=== PATIENT | female | born 1955 | race Caucasian/White ===

== ENCOUNTER → 2018-04-13 | Outpatient (CLI) | payer BC ==
--- NOTE | 2018-04-17 09:43 | MM ---
Reason for exam: screening (asymptomatic). Last mammogram was performed 1 year and 1 month ago. History: Patient is postmenopausal. Family history of breast cancer in maternal aunt. MG Screening Mammo w CAD Bilateral CC and MLO view(s) were taken. Prior study comparison: March 05, 2017, bilateral MG screening mammo w CAD. September 27, 2014, right breast MG work up mamm w CAD RT. The breast tissue is heterogeneously dense. This may lower the sensitivity of mammography. No discrete abnormality. No significant changes when compared with prior studies. ASSESSMENT: Negative, BI-RAD 1 RECOMMENDATION: Routine screening mammogram of both breasts in 1 year.
== END | disposition home or self-care (01) ==
LOC: RADMAMWWP 14:40
PROVIDERS: ATTEND Family Medicine
DX: Z12.31 Encounter for screening mammogram for malignant neoplasm of breast (principal)
CPT/HCPCS: 77067

== ENCOUNTER 2018-06-21 10:59 | Day surgery (SDC) | payer BC ==
--- NOTE | 2018-06-20 18:16 | HP ---
HISTORY AND PHYSICAL REASON FOR ADMISSION: Surgery 06/21/2018 HISTORY OF PRESENT ILLNESS: Wai Alves is a 62-year-old patient seen with symptomatic left knee osteoarthritis. We discussed options for treatment. She elected to proceed with left total knee arthroplasty. Consent was obtained. Medical clearance was provided by Dr. Doherty. PAST MEDICAL HISTORY: Hyperlipidemia, hypertension, insulin-dependent diabetes. PAST SURGICAL HISTORY: Left knee arthroscopy, left foot surgery, lumbar laminectomy. DAILY MEDICATIONS: Atorvastatin, bisoprolol/hydrochlorothiazide, glipizide, Lantus insulin, Lisinopril and Metformin. ALLERGIES: None reported. SOCIAL HISTORY: She denies current tobacco use. PHYSICAL EXAMINATION: Evaluation of the left knee range of motion is -3 to 4 to 10 degrees. There is a mild effusion present tenderness medial joint line. Crepitus medial and patellofemoral compartments range of motion. Pain with patellofemoral compression. Ligaments stable. Hip rotation without pain. Distal neurovascular exam is intact. RADIOGRAPHS: Radiographs of the left knee reveal severe medial moderate patellofemoral compartment osteoarthritis. IMPRESSION: 1. Left knee osteoarthritis. 2. Insulin-dependent diabetes. 3. Hypertension. 4. Hyperlipidemia. PLAN: Left total knee arthroplasty. Surgery is scheduled for 06/21/2018. MMODL / IJN: [id number] /
[~2018-06-21 10:59] MED LIST: ACETAMINOPHEN TAB 500 MG TAB PO ONE; DEXAMETHASONE SOD PHOSPHATE 10 MG/ML 1 ML VIAL IV ONE; HYDROmorphone 0.5 MG/0.5 ML SYRINGE IVP PRN; MELOXICAM 7.5 MG TAB PO ONE; MIDAZOLAM (PF) 2 MG/2 ML VIAL IV PRN; ONDANSETRON 4 MG/2 ML VIAL IVP ONE; SCOPOLAMINE 1.5MG/72HR PATCH TRANSDERM ONE; TRANEXAMIC ACID 1,000 MG in SODIUM CHLORIDE 0.9% 100 ML IVPB ONE; ceFAZolin IN SWFI 2 GM/20 ML SYRINGE IVP ONE
[2018-06-21 11:32] LABS: Glucose,Whole Blood 125 mg/dL (75-99)
[2018-06-21] MEDS: LACTATED RINGERS 1,000 ML IV SCH (11:34)
[2018-06-21] MEDS ORDERED: MIDAZOLAM 2 MG/2 ML VIAL IV ONE (11:40)
[2018-06-21] MEDS ORDERED: fentaNYL (PF) 50 MCG/ML 2 ML AMP IV ONE (11:40)
[2018-06-21] MEDS ORDERED: ROPIVACAINE 1,100 MG, SODIUM CHLORIDE 0.9% 500 ML 330 ML MISCELLANE PRN ×2 (12:38)
--- NOTE | 2018-06-21 12:41 | P.ONQ ---
Anesthesiology Proc Note - PNB - Peripheral Nerve Block Performed Left Adductor Canal Infusion Time Out Performed: Yes Procedure Start Time: 11:39 Indication: Acute Post-Operative Pain Specifically requested for management of pain by DrYina: Micah Valdez Sedation Type: Sedate with meaningful contact maintained Preparation: Sterile Prep Position: Supine Catheter Depth at Skin (cm): 8 Needle Size: 100mm (4") Injectate: 0.5% Ropivacaine (see comment for volume) (20 cc) Blood Aspirated: No Pain Paresthesia on Injection Noted: No Resistance on Injection: Normal Events: Uneventful and Well Tolerated
[2018-06-21] MEDS ORDERED: ROPIVACAINE 246.25 MG, EPINEPHrine 0.5 MG, KETOROLAC 30 MG, cloNIDine HCL/PF 80 MCG, WA... MISCELLANE ONE ×5 (12:53)
[2018-06-21] MEDS ORDERED: PROPOFOL 10 MG/ML 20 ML VIAL IV ONE (13:24)
[2018-06-21] MEDS ORDERED: diphenhydrAMINE 50 MG/ML 1 ML VIAL ONE (13:24)
[2018-06-21] MEDS ORDERED: fentaNYL (PF) 50 MCG/ML 2 ML AMP ONE (13:24)
[2018-06-21] MEDS ORDERED: SODIUM CHLORIDE 0.9% 100 ML BAG ONE (13:24)
[2018-06-21] MEDS ORDERED: TRANEXAMIC ACID 1,000 MG/10 ML VIAL ONE (13:24)
[2018-06-21] MEDS ORDERED: MIDAZOLAM 2 MG/2 ML VIAL ONE (13:24)
[2018-06-21] MEDS ORDERED: GLYCOPYRROLATE 0.2 MG/ML 2 ML VIAL ONE (13:24)
[2018-06-21] MEDS ORDERED: ceFAZolin 3,000 MG in SODIUM CHLORIDE 0.9% IRRIGATIO 3,000 ML IRRIGATION ONE (13:27)
[2018-06-21] MEDS ORDERED: LACTATED RINGERS 1,000 ML IV ONE ×4 (13:54→17:30)
[2018-06-21] MEDS ORDERED: MAGNESIUM HYDROXIDE 2,400 MG/10 ML CUP PO PRN (14:58)
[2018-06-21] MEDS ORDERED: HYDROcodone/APAP 7.5-325MG 1 EACH TAB PO PRN ×2 (14:58→15:00)
[2018-06-21] MEDS ORDERED: HYDROmorphone 1 MG/ML 1 ML SYRINGE IVP PRN (14:58)
[2018-06-21] MEDS ORDERED: ACETAMINOPHEN TAB 325 MG TAB PO PRN (14:58)
[2018-06-21] MEDS ORDERED: traMADol 50 MG TAB PO PRN (14:58)
[2018-06-21] MEDS ORDERED: NALOXONE 0.4 MG/ML 1 ML VIAL IV PRN (14:58)
[2018-06-21] MEDS ORDERED: HYDROmorphone 0.5 MG/0.5 ML SYRINGE IVP PRN (14:58)
[2018-06-21] MEDS ORDERED: ONDANSETRON 4 MG/2 ML VIAL IVP PRN (14:58)
--- NOTE | 2018-06-21 15:30 | P.OP ---
Date of Procedure: 06/21/18 Preoperative Diagnosis: Left knee osteoarthritis Postoperative Diagnosis: Left knee osteoarthritis Procedure(s) Performed: Left total knee arthroplasty Implants: 1. Depuy attune size 5 narrow left cruciate retaining cemented femur 2. Depuy attune size 5 fixed based cemented tibial baseplate 3. Depuy attune size 5 8 mm fixed bearing cruciate retaining polyethylene tibial insert 4. Depuy attune 38 mm all polyethylene cemented patella Anesthesia: regional (Adductor canal catheter), local, spinal Surgeon: Micah Valdez Estimated Blood Loss (ml): 50 Pathology: other (Bone) Condition: stable Disposition: PACU Indications for Procedure: 62-year-old patient seen with symptomatic left knee osteoarthritis. After treatment options were discussed, she elected to proceed with total knee arthroplasty. Operative Findings: see description of procedure Description of Procedure: Patient was taken to the operative suite after having an adductor canal catheter placed by the department of anesthesia for postoperative pain control. Patient underwent a spinal anesthetic by the department of anesthesia. Patient was given preoperative IV intake antibiotics and TXA. A well-padded tourniquet was placed about the left lower extremity. The lower extremity was then prepped and draped in the normal sterile orthopedic fashion. The extremity was elevated, a tourniquet was insufflated to 300. A standard anterior incision was made sharply through skin. Dissection was taken down through the subcutaneous soft tissues down to the extensor mechanism. A medial arthrotomy was performed, patella was everted and knee was flexed. There was advanced osteoarthritis noted. I introduced my distal intramedullary femoral drill. I then introduced the distal femoral cutting jig. My circulation assistant secured the cutting jig with 2 pins. I held retractors in position while the circulation assistant performed the distal femoral resection through the guide area we now removed her distal femoral cutting guide. We now placed our 4-in-1 femoral cutting block and positioned and it was secured with 2 pins by my circulation assistant while I held the block in position. The distal femoral finishing was now completed. A proximal tibial cutting guide was positioned. I held the guide in the appropriate position with both hands well Dale TRUJILLO inserted stabilizing pins into the guide. Proximal tibial cut was made. We now placed a trial femoral component into position, along with an appropriate size tibial tray and insert. We now took the knee through range of motion and had full extension good flexion and good overall soft tissue balance noted. The patella was everted and stabilized with 2 towel clips held by the circulation assistant while I performed a flush with patellar quad tendon utilizing a fresh sawblade. We templated the patella, appropriate drill holes were made. An appropriate trial patella was positioned, knee was taken through full range of motion with the patella tracking very nicely. The trial patella was removed. Drill holes were made through the femoral component. All trial components were removed after marking off the appropriate rotation of the tibia. Retractors were now positioned along the proximal tibia. An appropriate keel punch was made with the appropriate size tibial guide by myself on my circulation assistant assisted by holding retractors. At this point appropriate size implants were chosen and opened. The joint was irrigated copiously with pulse lavage mechanical irrigation. The posterior capsule was infiltrated with local analgesic. The wound was irrigated with pulse lavage mechanical irrigation. We mixed antibiotic methylmethacrylate. We placed the knee into flexion. We placed multiple retractors assisted by Dale TRUJILLO to expose the proximal tibia. Once the methyl methacrylate was ready, the tibial component was cemented into place removing any excess methylmethacrylate form by both myself and my circulation assistant. The femoral component was cemented into place removing the removing any excess methylmethacrylate performed by both myself and my circulation assistant. We then inserted the appropriate size polyethylene tibial insert. We made sure that it was locked into position. We took the knee into full extension, and then back in a flexion making sure we had removed any excess methylmethacrylate. The patellar component was then cemented down and secured with clamp. Excess methylmethacrylate removed. We kept the knee in full extension, patellar clamp in position until methylmethacrylate had hardened. Once it had hardened the patellar clamp was removed. The knee was taken through full range of motion. The patella tracked nicely. There was good soft tissue balancing. The tourniquet was now released. Additional hemostasis was achieved via electrocautery. A second gram of TXA was given. The wound again was irrigated with pulse lavage mechanical irrigation. The superficial soft tissues were infiltrated local analgesic. The extensor mechanism was repaired with Vicryl. We checked the repair with range of motion and it was stable. The subcutaneous soft tissues were repaired with Vicryl in layers. The skin was approximated with pernio/Dermabond. Sterile dressings were applied followed by loose web roll and Shai bandage. The patient was transferred to a bed, and taken to recovery in stable and satisfactory condition.
[2018-06-21 16:25] LABS: Glucose,Whole Blood 168 mg/dL (75-99)
--- NOTE | 2018-06-21 16:30 | XR ---
Limited left knee history: Status post left knee arthroplasty 2 views the left knee Patient is status post left knee arthroplasty. There is anatomic alignment. Lucency in the soft tissu es is compatible with postop state. IMPRESSION: Orthopedic follow-up.
[2018-06-21 19:51] LABS: Glucose,Whole Blood 178 mg/dL (75-99)
[2018-06-21] MEDS ORDERED: SENNOSIDES-DOCUSATE SODIUM 1 EACH TAB PO SCH (21:00)
[2018-06-21] MEDS ORDERED: INSULIN DETEMIR (LEVEMIR) 100 UNIT/ML SYR SQ SCH (21:30)
[2018-06-21 21:52] VITALS: BMI 35.0
[2018-06-21] MEDS: metFORMIN 500 MG TAB PO SCH (22:07)
[2018-06-21] MEDS: ceFAZolin IN SWFI 2 GM/20 ML SYRINGE IVP SCH (22:07)
[2018-06-21] MEDS: hydrALAZINE HCL 10 MG TAB PO SCH (22:07)
[2018-06-22] MEDS: ceFAZolin IN SWFI 2 GM/20 ML SYRINGE IVP SCH (05:03)
[2018-06-22 07:07] LABS: Glucose,Whole Blood 65 mg/dL (75-99)
[2018-06-22 07:29] LABS: Glucose,Whole Blood 68 mg/dL (75-99)
[2018-06-22] MEDS ORDERED: glipiZIDE 10 MG TAB PO SCH (07:30)
[2018-06-22 07:40] LABS: Basophils % (A) 0 %; Eosinophils % (A) 0 %; HCT 32.2 % (34.0-46.0); Lymphocytes # (A) 1.9 k/uL (1.0-4.8); Lymphocytes % (A) 18 %; MCH 27.5 pg (25.0-35.0); MCV 80.8 fL (80.0-100.0); Mean Platelet Volume 7.9; Monocytes # (A) 0.5 k/uL (0-1.0); Monocytes % (A) 5 %; Neutrophils # (A) 7.8 k/uL (1.3-7.7); Neutrophils % (A) 76 %; Platelet Count 239 k/uL (150-450); RBC 3.99 m/uL (3.80-5.40); RDW 14.4 % (11.5-15.5); WBC 10.2 k/uL (3.8-10.6)
[2018-06-22 07:47] VITALS: BP 120/70; PULSE 66; RESP 17; TEMP 97.8
[2018-06-22] MEDS: hydrALAZINE HCL 10 MG TAB PO SCH (07:48)
[2018-06-22] MEDS: metFORMIN 500 MG TAB PO SCH (07:48)
[2018-06-22 07:57] LABS: Glucose,Whole Blood 98 mg/dL (75-99)
[2018-06-22] MEDS ORDERED: ENOXAPARIN 30 MG/0.3 ML SYRINGE SQ SCH (09:00)
[2018-06-22] MEDS ORDERED: BISOPROLOL-HCTZ 10-6.25 MG 1 EACH TAB PO SCH (09:00)
[2018-06-22] MEDS ORDERED: LISINOPRIL 20 MG TAB PO SCH (09:00)
--- NOTE | 2018-06-22 10:46 | P.PN ---
Subjective Progress Note Date: 06/22/18 Principal diagnosis: status post left total knee arthroplasty Patient evaluated bedside today, she is resting comfortably. She seems sleepy, she states she just took a pain pill. She is ambulating with therapy. Denies any fevers or chills. Objective - Vital Signs Vital signs: Vital Signs Temp 97.8 F 06/22/18 07:00 Pulse 66 06/22/18 07:00 Resp 17 06/22/18 07:30 BP 120/70 06/22/18 07:00 Pulse Ox 94 L 06/22/18 07:00 Intake & Output 06/21/18 06/22/18 06/22/18 18:59 06:59 18:59 Intake Total 2101 400 Output Total 50 400 Balance 2050 0 Intake: IV 2100 Intake, IV Titration 400 Amount Lactated Ringers 1,000 ml 400 @ 50 mls/hr IV .Q20H [id number] Rx#:[id number] Output: Urine 400 Estimated Blood Loss 50 Other: Voiding Method Toilet # Voids 1 - Exam Left lower extremity: Incision is clean, dry, and intact. The exofin fusion tape is in good condition. There is minimal soft tissue swelling and ecchymosis surrounding the medial and lateral aspects of the incision. Calf is soft, no tenderness with palpation. Plantar flexion, dorsiflexion, EHL, FHL are intact. Sensory exam to light touch throughout the extremity is intact, dorsal pedis pulses 2+. - Labs CBC & Chem 7: 06/22/18 06:49 Labs: Abnormal Lab Results - Last 24 Hours (Table) 06/21/18 06/21/18 06/21/18 Range/Units 11:31 16:20 19:49 Hgb (11.4-16.0) gm/dL Hct (34.0-46.0) % Neutrophils # (1.3-7.7) k/uL POC Glucose (mg/dL) 125 H 168 H 178 H (75-99) mg/dL 06/22/18 06/22/18 06/22/18 Range/Units 06:49 07:01 07:23 Hgb 11.0 L (11.4-16.0) gm/dL Hct 32.2 L (34.0-46.0) % Neutrophils # 7.8 H (1.3-7.7) k/uL POC Glucose (mg/dL) 65 L 68 L (75-99) mg/dL Assessment and Plan Plan: Assessment: Postop day #1 status post left total knee arthroplasty Plan: Pain control, continue oral medication GI and DVT prophylaxis, continue current medication Wound care instructions discussed Encourage incentive spirometer Continue with physical therapy/icing/elevating/CPM Medical recommendations Discharge planning: Hopeful discharge home today Time with Patient: Less than 30
[2018-06-22 11:57] LABS: Glucose,Whole Blood 117 mg/dL (75-99)
[2018-06-22] MEDS: LACTATED RINGERS 1,000 ML IV SCH (12:00)
--- NOTE | 2018-06-22 13:22 | P.PN ---
Progress Note - Text Anesthesia POD 1. Patient is status post left TKR under spinal anesthesia with a left adductor canal catheter placed for postoperative pain relief. With ropivacaine 0.2% running at 8 cc's per hour, the patient's VAS is (1, 3). Catheter site is clean dry and intact.
--- NOTE | 2018-06-22 14:32 | P.DS ---
Providers Date of admission: 06/21/2018 Expected date of discharge: 06/22/18 Attending physician: Micah Valdez Consults: 06/21/18 15:01 Consult Physician Routine Consulting Provider: Randolph Doherty Consult Reason/Comments: Medical Management Do you want consulting provider notified?: Yes Primary care physician: Randolph Doherty Hospital Course: Date of admission: 06/21/2018 Date of discharge: 06/22/2018 Admission diagnosis: Status post left total knee arthroplasty Discharge diagnosis: Same Attending physician: Dr. Valdez Surgical procedures: Left total knee arthroplasty Brief history: Patient is a 62-year-old female with a history of progressive primary left knee osteoarthritis. At this point patient has failed conservative treatment measures and has opted to proceed with a elective left total knee arthroplasty. Hospital course: Details of patient's surgery can be found in operative report. Patient tolerated the procedure well and was subsequently transported to orthopedic floor. Patient's orthopeidc and medical care was provided daily. Patient had daily laboratory tests performed for evaluation of overall blood counts. Patient had daily physical therapy to include strengthening range of motion as well as education with walker ambulation. Patient had daily CPM usage as part of their physical therapy program. Patient was treated with Lovenox for their postoperative DVT prophylaxis during their inpatient stay. Patient was noted to have a relatively uneventful postoperative course. Patient reported satisfactory pain control with oral pain medications by postoperative day 0. Patient showed satisfactory progress with physical therapy. Patient moved steadily through the program and had no difficulty meeting the goals by po stoperative day 1. Given patient's otherwise satisfactory course and having met physical therapy goals, plan is to discharge patient home on postoperative day 1. Discharge condition/disposition: Patient will be discharged home in stable condition. Discharge medications: Instructions are given on resumption of patient's normal daily medications per primary care recommendation, in addition patient will be prescribed Kinney 5 mg/325 mg, Colace 100 mg, aspirin 81 mg. Discharge instructions: 1. Wound care and infection precautions, keep incision dry and covered while showering, no lotions, creams, moisturizers. No soaking, tubs, pools, hottubs. Do not scrub over the incision. 2. Weight-bear as tolerated with walker / cane until follow-up. 3. Ice and elevate when necessary. Do not exceed 20 minutes per hour with ice pack. 4. Utilize compression sleeve until seen at first follow up appointment. 5. Visiting nursing care. 6. Home physical therapy including home CPM. 7. Pain meds and anticoagulants per prescription. 8. Pain medication has potential to cause constipation. Increase oral fluid and fiber intake. Contact primary care provider if you have not had a bowel movement within 48 hours after discharge 9. No anti-inflammatory medication until discussed at first post operative visit, this including Motrin, Aleve, Mobic, Diclofenac. 10. Follow up in office at 2 weeks postop with Dale Mixon PA-C 11. Follow up with your primary care doctor 7-10 days after discharge. 12. Contact [facility] with any questions, . Procedures: Left total knee arthroplasty Patient Condition at Discharge: Good Plan - Discharge Summary Discharge Rx Participant: No New Discharge Prescriptions: New Aspirin [Adult Low Dose Aspirin EC] 81 mg PO BID #60 tablet. Docusate [Colace] 100 mg PO DAILY #30 capsule Hydrocodone/Acetaminophen [Kinney 5-325] 1 - 2 each PO Q6HR PRN #40 tab PRN Reason: Pain No Action Naproxen Sodium [Aleve] 220 mg PO BID Bisoprolol-Hctz 10-6.25 mg [Ziac 10-6.25] 1 each PO BID hydrALAZINE HCL [Apresoline] 10 mg PO BID Insulin Glargine,Hum.rec.anlog [Lantus Solostar] 40 unit SQ HS Atorvastatin [Lipitor] 10 mg PO HS metFORMIN HCL [Glucophage] 1,000 mg PO BID glipiZIDE [Glucotrol] 10 mg PO AC-BID Lisinopril [Zestril] 40 mg PO DAILY Acetaminophen Tab [Tylenol] 325 tab PO ONCE Discharge Medication List Atorvastatin [Lipitor] 10 mg PO HS 06/14/18 [History] Bisoprolol-Hctz 10-6.25 mg [Ziac 10-6.25] 1 each PO BID 06/14/18 [History] Insulin Glargine,Hum.rec.anlog [Lantus Solostar] 40 unit SQ HS 06/14/18 [History] Lisinopril [Zestril] 40 mg PO DAILY 06/14/18 [History] Naproxen Sodium [Aleve] 220 mg PO BID 06/14/18 [History] glipiZIDE [Glucotrol] 10 mg PO AC-BID 06/14/18 [History] hydrALAZINE HCL [Apresoline] 10 mg PO BID 06/14/18 [History] metFORMIN HCL [Glucophage] 1,000 mg PO BID 06/14/18 [History] Acetaminophen Tab [Tylenol] 325 tab PO ONCE 06/21/18 [History] Aspirin [Adult Low Dose Aspirin EC] 81 mg PO BID #60 tablet. 06/22/18 [Rx] Docusate [Colace] 100 mg PO DAILY #30 capsule 06/22/18 [Rx] Hydrocodone/Acetaminophen [Kinney 5-325] 1 - 2 each PO Q6HR PRN #40 tab 06/22/18 [Rx] Follow up Appointment(s)/Referral(s): [facility], [NON-STAFF] - Sanjeev Mixon PAC [PHYSICIAN HORSE SHOW JUDGE] - 2 Weeks Activity/Diet/Wound Care/Special Instructions: Orthopedic Discharge Instructions: 1. Wound care and infection precautions, keep incision dry and covered while showering, no lotions, creams, moisturizers. No soaking, pools, hot tubs. Do not scrub over incision. 2. Weight-bear as tolerated with walker / cane until follow-up. 3. Ice and elevate when necessary. Do not exceed 20 minutes per hour with ice pack. 4. Utilize compression sleeve until seen at first follow up appointment. 5. Pain meds and anticoagulants per prescription. 6. Pain medication has potential to cause constipation. Increase oral fluid and fiber intake. Contact primary care provider if you have not had a bowel movement within 48 hours after discharge. 7. No anti-inflammatory medication until discussed at first post operative visit, this including Motrin, Aleve, Mobic, Diclofenac. 8. Follow up in office at 2 weeks postop with Dale Mixon PA-C 9. Follow up with your primary care doctor 7-10 days after discharge. 10. Contact [facility] with any questions, [phone]. 11. *Please call [facility] once home to arrange delivery of continuous passive motion (CPM) [facility] - Discharge Disposition: HOME WITH HOME HEALTH SERVICES
--- NOTE | 2018-06-22 15:19 | PN ---
PROGRESS NOTE DATE OF SERVICE: 06/22/2018 CHIEF COMPLAINT: Status post left TKA. HISTORY OF PRESENT ILLNESS: This lady is doing well except for the discomfort. She has had no chest pain, shortness of breath, abdominal pain, etc. PHYSICAL EXAM: Vital signs are normal. She is afebrile. Chest is clear. Cardiac exam is normal. The abdomen is soft, nontender. IMPRESSION: 1. Status post left TKA. 2. Diabetes. 3. Hypertension. PLAN: Continue with current program. She is expecting to go home today. MMODL / IJN: [id number] /
--- NOTE | 2018-06-22 15:27 | CONS ---
CONSULTATION CHIEF COMPLAINT: Arthritis of the left knee. HISTORY OF PRESENT ILLNESS: This is the first admission for this 62-year-old white female who has had gradually deteriorating and problems with her left knee and is coming in for a elective left TKA. She also has a history of insulin-dependent type 2 diabetes mellitus with fairly good control. She has hypertension. REVIEW OF SYSTEMS: She has had no headaches, change in vision or hearing, retinopathy, chest pain, shortness of breath. No cough, hemoptysis, heart disease, angina, infarctions, orthopnea, PND, abdominal pain, nausea, vomiting, hematemesis, melena, hematochezia, colitis, diverticulosis, diverticulitis, hemorrhoids, jaundice, hepatitis, cirrhosis, renal failure, hematuria, frequency, urgency, incontinence, etc. Past medical history, family history, personal and social histories reveal that she has had an appendectomy, procedure on her back, removal of a heel spur and a procedure on her knee in 2007. She has a family history of CA of the colon and dementia. She has never been a smoker. USUAL MEDICATIONS INCLUDE: Lantus 40 units once a day, Lipitor 10 mg bedtime, hydralazine 10 mg twice a day, Ziac 10-6.25 twice a day, lisinopril 40 once a day, glipizide 10 mg twice a day, Glucophage 1 g twice a day. PHYSICAL EXAMINATION: Blood pressure 126/84, pulse 76 regular, respirations 16. She is afebrile general. She appears to be slightly pale, in no acute distress. Skin color is normal, otherwise her skin is warm, dry. Lymph nodes not enlarged. Head, ears, eyes, nose, mouth, and throat were normal. Neck veins were not distended. Thyroid is not enlarged. Chest is clear. Cardiac exam is normal and no murmurs or extra sounds. The abdomen is soft, nontender without any masses or visceromegaly. Bowel sounds are present. Extremities are normal, except for the left knee, which was slightly hypertrophied. Pulses good. Neurologically, she is intact. IMPRESSION: 1. Arthritis left knee. 2. Hypertension. 3. Insulin-dependent type 2 diabetes mellitus. RECOMMENDATIONS: None. She is cleared for surgery and should be relatively low risk. She is improved. MMODL / IJN: [id number] /
== END 2018-06-22 15:15 | disposition home health service (06) ==
LOC: OR 10:59 → 4SSUR 18:31 → OR 06-22 15:15
PROVIDERS: ATTEND Orthopaedic Surgery
DX: M17.12 Unilateral primary osteoarthritis, left knee (principal); E78.5 Hyperlipidemia, unspecified; I10 Essential (primary) hypertension; E11.9 Type 2 diabetes mellitus without complications; Z79.4 Long term (current) use of insulin; Z79.899 Other long term (current) drug therapy; Z79.1 Long term (current) use of non-steroidal anti-inflammatories (NSAID); Z80.0 Family history of malignant neoplasm of digestive organs
CPT/HCPCS: 27447; 97161; 64448; 85025; 88300; 73560; C1776; C1713; C1772; J2250; J0171; J1200; J1100; J2405; J0690 ×3; J3010; J1885; J1650; J2795; J2704; J0735

== ENCOUNTER → 2021-04-29 | Outpatient (CLI) | payer MEDICARE ==
[2021-04-29 11:40] LABS: Appearance,Urine Cloudy (Clear); Bilirubin,Urine Negative (Negative); Blood,Urine Negative (Negative); Color,Urine Yellow (Yellow); Ketones,Urine Negative (Negative); Leukocyte Esterase,Urine Moderate (Negative); Nitrite,Urine Negative (Negative); Protein,Urine Negative (Negative); Specific Gravity,Urine 1.008 (1.001-1.030); Urobilinogen,Urine 0.2 E.U./DL (0.0-1.0)
[2021-04-29 11:43] LABS: Bacteria,Urine None Seen /HPF (None Seen); WBC,Urine 7 /HPF (0-5)
[2021-04-29 11:53] LABS: Basophils # (A) 0.05 X 10*3/uL (0.00-0.10); Basophils % (A) 0.8 %; Eosinophils # (A) 0.15 X 10*3/uL (0.04-0.35); Eosinophils % (A) 2.5 %; HCT 39.3 % (37.2-46.3); HGB 12.6 g/dL (12.0-15.0); Immature Grans, Automated 0.3 %; Lymphocytes # (A) 2.08 X 10*3/uL (0.90-5.00); Lymphocytes % (A) 34.7 %; MCH 26.6 pg (27.0-32.0); MCHC 32.1 g/dL (32.0-37.0); MCV 82.9 fL (80.0-97.0); Monocytes # (A) 0.49 X 10*3/uL (0.20-1.00); Monocytes % (A) 8.2 %; NRBC Per 100 WBC 0 /100 WBCS (0.0-0.0); Neutrophils # (A) 3.21 X 10*3/uL (1.80-7.70); Neutrophils % (A) 53.5 %; Platelet Count 258 X 10*3/uL (140-440); RBC 4.74 X 10*6/uL (4.10-5.20); RDW 14.6 % (11.5-14.5)
[2021-04-29 12:21] LABS: ALT 24 U/L (8-44); AST 22 U/L (13-35); African American GFR (CKD) 88.4 (60.0-200.0); Albumin 4.3 g/dL (3.8-4.9); Albumin/Globulin Ratio 1.65 (1.60-3.17); Alkaline Phosphatase 108 U/L (41-126); BUN/Creat Ratio 15.63 Ratio (12.00-20.00); Blood Urea Nitrogen 12.5 mg/dL (9.0-27.0); Calcium 9.4 mg/dL (8.7-10.3); Carbon Dioxide 25.9 mmol/L (20.0-27.5); Chloride 103 mmol/L (96-109); Creatine Kinase 71 U/L (26-186); Globulin 2.6 g/dL (1.6-3.3); Glucose 94 mg/dL (70-110); LDL Cholesterol,Calculated 41.7 mg/dL (0.0-131.0); Non-African American GFR(CKD) 76.3 (60.0-200.0); Potassium 4.3 mmol/L (3.5-5.5); Sodium 141 mmol/L (135-145); Total Bilirubin <0.20 mg/dL (0.30-1.20); Total Protein 6.9 g/dL (6.2-8.2); VLDL Calculation 15.04 mg/dL (5.00-40.00)
[2021-04-29 20:32] LABS: Microalbumin Creatinine Ratio <30 mg/g Creat (0-30); Urine Creatinine 48.4 mg/dL (28.0-217.0)
== END | disposition home or self-care (01) ==
LOC: LABWHC1 07:05
PROVIDERS: ATTEND Family Medicine
DX: I10 Essential (primary) hypertension (principal); E11.9 Type 2 diabetes mellitus without complications; E78.2 Mixed hyperlipidemia
CPT/HCPCS: 36415; 80053; 80061; 81001; 82043; 82306; 82550; 82570; 82607; 83036; 84439; 84443; 85025

== ENCOUNTER → 2021-08-16 | Outpatient (CLI) | payer MEDICARE ==
--- NOTE | 2021-08-19 08:38 | BD ---
EXAMINATION TYPE: Axial Bone Density DATE OF EXAM: 08/16/2021 COMPARISON: NONE CLINICAL HISTORY: 65 years year old Female. ICD-10 CODE: M81.0 Age-related osteoporosis without curr ent pathological Height: 64.5 Weight: 196.7 FRAX RISK QUESTIONS: Alcohol (3 or more units per day): NO Family History (Parent hip fracture): NO Glucocorticoids (More than 3mos): NO History of Fracture in Adulthood: YES Secondary Osteoporosis: 1. Type 1 Diabetes: NO 2. Hyperthyroidism: NO 3. Menopause before 45: NO 4. Malnutrition: NO 5. Chronic liver disease: NO Rheumatoid Arthritis: NO Current Tobacco Use: NO RISK FACTORS HISTORY OF: Hip Fracture (Right/Left): NO Spine Fracture NO History of Wrist Fracture: NO Surgery to Spine/Hip(right/left)/Wrist (right/left): NO Family History of Osteoporosis: NO Active: YES Diet low in dairy products/other sources of calcium: YES Postmenopausal woman: YES Take estrogen and/or progesterone medications: NO Lost more than 2 inches in height since high school: NO Frequent falls: NO Poor Health: NO Hyperparathyroidism: NO Adrenal Insufficiency: NO MEDICATIONS: Prednisone or other steroids: NO Thyroid Medications: NO Osteoporosis Medications:NO Additional Medications: METFORMIN, GLIP ASIDE, BP MEDS, Additional History: EXAM MEASUREMENTS: Bone mineral densitometry was performed using the [employer] System. Bone mineral density as measured about the Lumbar spine is: ----- L1-L4(G/cm2): 1.555 T Score Values are as follows: ----- L1: 1.3 ----- L2: 2.9 ----- L3: 3.0 ----- L4: 4.8 ----- L1-L4: 3.1 BASELINE STUDY Bone mineral density about the R hip (g/cm2): 0.929 Bone mineral density about the L hip (g/cm2): 0.869 T Score values are as follows: -----R Neck: -0.8 -----L Neck: -1.2 -----R Total: 0.5 -----L Total: 0.1 BASELINE STUDY FRAX%s: The graph provided illustrates a 13.7% chance for a major osteoporotic fx and a 1.3% chance f or the hips probability for fx in 10 years time. IMPRESSION: Osteopenia (T Score between -2.5 and -1). There is slightly increased risk of fracture and the patient may be considered for treatment. Re-Screen 2-5 years. NOTE: T-SCORE=SD OF THE YOUNG ADULT MEAN.
--- NOTE | 2021-08-20 10:01 | MM ---
Reason for Exam: Screening (asymptomatic). Last mammogram was performed 3 year(s) and 4 month(s) ago. Patient History: Menarche at age 12. First Full-Term at age 18. Postmenopausal. Maternal aunt had breast cancer. Risk Values: Josephine 5 year model risk: 1.4%. NCI Lifetime model risk: 4.8%. Film Views: Bilateral CC views were taken. Bilateral MLO views were taken. Prior Study Comparison: 09/27/2014 Right Diagnostic Mammogram, [facility]. 03/05/2017 Bilateral Screening Mammogram, [facility]. 04/13/2018 Bilateral Screening Mammogram, [facility]. Tissue Density: There are scattered fibroglandular densities. Findings: Analyzed By CAD. There are a few scattered benign-appearing round calcifications in the right breast redemonstrated. There is no suspicious group of microcalcifications or new suspicious mass in either breast. Overall Assessment: Benign, BI-RAD 2 Management: Screening Mammogram of both breasts in 1 year. A clinical breast exam by your physician is recommended on an annual basis and results should be correlated with mammographic findings. Electronically signed and approved by: Joselo Suh M.D.
== END | disposition home or self-care (01) ==
LOC: RADMAMWWP 15:09
PROVIDERS: ATTEND Family Medicine
DX: Z12.31 Encounter for screening mammogram for malignant neoplasm of breast (principal); M85.851 Other specified disorders of bone density and structure, right thigh; M85.852 Other specified disorders of bone density and structure, left thigh; Z78.0 Asymptomatic menopausal state; Z80.3 Family history of malignant neoplasm of breast
CPT/HCPCS: 77063; 77067; 77080

== ENCOUNTER → 2021-09-09 | Outpatient (CLI) | payer MEDICARE ==
[2021-09-09 10:38] LABS: Basophils # (A) 0.04 X 10*3/uL (0.00-0.10); Basophils % (A) 0.7 %; Eosinophils # (A) 0.08 X 10*3/uL (0.04-0.35); Eosinophils % (A) 1.5 %; HCT 42.3 % (37.2-46.3); HGB 13.2 g/dL (12.0-15.0); Immature Grans, Automated 0.4 %; Lymphocytes # (A) 1.88 X 10*3/uL (0.90-5.00); Lymphocytes % (A) 34.2 %; MCH 25.8 pg (27.0-32.0); MCHC 31.2 g/dL (32.0-37.0); MCV 82.6 fL (80.0-97.0); Mean Platelet Volume 11.6 fL (9.5-12.2); Monocytes # (A) 0.46 X 10*3/uL (0.20-1.00); Monocytes % (A) 8.4 %; NRBC Per 100 WBC 0 /100 WBCS (0.0-0.0); Neutrophils # (A) 3.02 X 10*3/uL (1.80-7.70); Neutrophils % (A) 54.8 %; Platelet Count 256 X 10*3/uL (140-440); RBC 5.12 X 10*6/uL (4.10-5.20)
[2021-09-09 10:52] LABS: Microalbumin Creatinine Ratio <30 mg/g Creat (0-30); Urine Creatinine 79.1 mg/dL (28.0-217.0)
[2021-09-09 10:56] LABS: ALT 16 U/L (8-44); AST 23 U/L (13-35); African American GFR (CKD) 88.4 (60.0-200.0); Albumin 4.3 g/dL (3.8-4.9); Alkaline Phosphatase 116 U/L (41-126); BUN/Creat Ratio 22.38 Ratio (12.00-20.00); Blood Urea Nitrogen 17.9 mg/dL (9.0-27.0); Calcium 9.5 mg/dL (8.7-10.3); Carbon Dioxide 25.7 mmol/L (20.0-27.5); Chloride 101 mmol/L (96-109); Chol/HDL Ratio 2.36 Ratio; Globulin 3.3 g/dL (1.6-3.3); Glucose 107 mg/dL (70-110); LDL Cholesterol,Calculated 52.4 mg/dL (0.0-131.0); Non-African American GFR(CKD) 76.3 (60.0-200.0); Potassium 4.3 mmol/L (3.5-5.5); Sodium 139 mmol/L (135-145); Total Protein 7.6 g/dL (6.2-8.2); VLDL Calculation 13.92 mg/dL (5.00-40.00)
== END | disposition home or self-care (01) ==
LOC: LABWHC1 07:06
PROVIDERS: ATTEND Family Medicine
DX: E11.9 Type 2 diabetes mellitus without complications (principal); E78.2 Mixed hyperlipidemia; R00.1 Bradycardia, unspecified
CPT/HCPCS: 36415; 80053; 80061; 82043; 82570; 83036; 84443; 85025

== ENCOUNTER → 2022-01-07 | Outpatient (CLI) | payer MEDICARE ==
[2022-01-07 10:42] LABS: Basophils # (A) 0.04 X 10*3/uL (0.00-0.10); Basophils % (A) 0.5 %; Eosinophils # (A) 0.12 X 10*3/uL (0.04-0.35); Eosinophils % (A) 1.4 %; HCT 37.9 % (37.2-46.3); HGB 12.5 g/dL (12.0-15.0); Immature Grans, Automated 0.5 %; Lymphocytes # (A) 2.69 X 10*3/uL (0.90-5.00); MCH 26.7 pg (27.0-32.0); MCV 80.8 fL (80.0-97.0); Monocytes # (A) 0.54 X 10*3/uL (0.20-1.00); Monocytes % (A) 6.4 %; NRBC Per 100 WBC 0 /100 WBCS (0.0-0.0); Neutrophils # (A) 4.98 X 10*3/uL (1.80-7.70); Neutrophils % (A) 59.2 %; Platelet Count 283 X 10*3/uL (140-440); RBC 4.69 X 10*6/uL (4.10-5.20); RDW 14.9 % (11.5-14.5); WBC 8.41 X 10*3/uL (4.50-10.00)
[2022-01-07 10:57] LABS: ALT 14 U/L (8-44); AST 18 U/L (13-35); African American GFR (CKD) 77.4 (60.0-200.0); Albumin 4.2 g/dL (3.8-4.9); Albumin/Globulin Ratio 1.36 (1.60-3.17); Alkaline Phosphatase 122 U/L (41-126); BUN/Creat Ratio 16.67 Ratio (12.00-20.00); Blood Urea Nitrogen 14.8 mg/dL (9.0-27.0); Calcium 9.1 mg/dL (8.7-10.3); Carbon Dioxide 27.4 mmol/L (20.0-27.5); Chloride 98 mmol/L (96-109); Chol/HDL Ratio 2.05 Ratio; Globulin 3.1 g/dL (1.6-3.3); Glucose 163 mg/dL (70-110); Non-African American GFR(CKD) 66.8 (60.0-200.0); Sodium 135 mmol/L (135-145); Total Bilirubin <0.15 mg/dL (0.30-1.20); Total Protein 7.2 g/dL (6.2-8.2); VLDL Calculation 14.94 mg/dL (5.00-40.00)
[2022-01-07 11:48] LABS: Microalbumin Creatinine Ratio <30 mg/g Creat (0-30); Urine Creatinine 37.7 mg/dL (28.0-217.0)
== END | disposition home or self-care (01) ==
LOC: LABWHC1 07:08
PROVIDERS: ATTEND Family Medicine
DX: E11.9 Type 2 diabetes mellitus without complications (principal); E78.2 Mixed hyperlipidemia
CPT/HCPCS: 36415; 80053; 80061; 82043; 82570; 83036; 84443; 85025

== ENCOUNTER → 2022-09-12 | Outpatient (CLI) | payer MEDICARE ==
[2022-09-12 11:21] LABS: Basophils # (A) 0.03 X 10*3/uL (0.00-0.10); Basophils % (A) 0.5 %; Eosinophils % (A) 1.7 %; HCT 39.9 % (37.2-46.3); HGB 12.7 d/dL (12.0-15.0); Lymphocytes # (A) 2.12 X 10*3/uL (0.90-5.00); MCH 26.5 pg (27.0-32.0); MCHC 31.8 d/dL (32.0-37.0); MCV 83.1 FL (80.0-97.0); Mean Platelet Volume 11.8 FL (9.5-12.2); Monocytes # (A) 0.48 X 10*3/uL (0.20-1.00); Monocytes % (A) 7.9 %; NRBC Per 100 WBC 0 X 10*3/uL (0.00-0.01); Neutrophils % (A) 54.6 %; Platelet Count 264 X 10*3/uL (140-440); RDW 15.5 % (11.5-14.5); WBC 6.05 X 10*3/uL (4.50-10.00)
[2022-09-12 11:41] LABS: ALT 17 U/L (8-44); AST 19 U/L (13-35); Albumin 4.3 d/dL (3.8-4.9); Albumin/Globulin Ratio 1.48 Ratio (1.60-3.17); Alkaline Phosphatase 116 U/L (41-126); BUN/Creat Ratio 23.62 Ratio (12.00-20.00); Blood Urea Nitrogen 18.9 mg/dL (9.0-27.0); Calcium 9.4 mg/dL (8.7-10.3); Carbon Dioxide 27.9 mmol/L (21.6-31.8); Chloride 102 mmol/L (96-109); Chol/HDL Ratio 2.11 Ratio; Globulin 2.9 d/dL (1.6-3.3); Glucose 99 mg/dL (70-110); LDL Cholesterol,Calculated 44.8 mg/dL (0.0-131.0); Potassium 4.5 mmol/L (3.5-5.5); Sodium 140 mmol/L (135-145); Total Bilirubin 0.3 mg/dL (0.3-1.2); Total Protein 7.2 d/dL (6.2-8.2); VLDL Calculation 14.74 mg/dL (5.00-40.00)
[2022-09-12 18:25] LABS: Microalbumin Creatinine Ratio <26 mg/g Cr (0-30); Urine Creatinine 45.6 mg/dL (28.0-217.0)
== END | disposition home or self-care (01) ==
LOC: LABWHC1 06:59
PROVIDERS: ATTEND Family Medicine
DX: E11.9 Type 2 diabetes mellitus without complications (principal); E78.2 Mixed hyperlipidemia
CPT/HCPCS: 36415; 80053; 80061; 82043; 82570; 83036; 84443; 85025

== ENCOUNTER → 2023-03-18 | Outpatient (CLI) | payer MEDICARE ==
[2023-03-18 10:59] LABS: Basophils # (A) 0.05 X 10*3/uL (0.00-0.10); Basophils % (A) 0.9 %; Eosinophils # (A) 0.13 X 10*3/uL (0.04-0.35); Eosinophils % (A) 2.4 %; HGB 12.8 g/dL (12.0-15.0); Lymphocytes # (A) 1.83 X 10*3/uL (0.90-5.00); Lymphocytes % (A) 33.6 %; MCH 26.3 pg (27.0-32.0); MCV 82.3 FL (80.0-97.0); Mean Platelet Volume 11.3 FL (9.5-12.2); Monocytes # (A) 0.53 X 10*3/uL (0.20-1.00); Monocytes % (A) 9.7 %; NRBC Per 100 WBC 0 X 10*3/uL (0.00-0.01); Neutrophils % (A) 53.2 %; Platelet Count 256 X 10*3/uL (140-440); RBC 4.86 X 10*6/uL (4.10-5.20); WBC 5.45 X 10*3/uL (4.50-10.00)
[2023-03-18 11:17] LABS: ALT 15 U/L (8-44); AST 17 U/L (13-35); Albumin 4.1 g/dL (3.8-4.9); Albumin/Globulin Ratio 1.46 Ratio (1.60-3.17); Alkaline Phosphatase 122 U/L (41-126); BUN/Creat Ratio 17.12 Ratio (12.00-20.00); Blood Urea Nitrogen 13.7 mg/dL (9.0-27.0); Calcium 9.7 mg/dL (8.7-10.3); Carbon Dioxide 27.6 mmol/L (21.6-31.8); Chloride 105 mmol/L (96-109); Chol/HDL Ratio 2.31 Ratio; Globulin 2.8 g/dL (1.6-3.3); Glucose 128 mg/dL (70-110); LDL Cholesterol,Calculated 53.4 mg/dL (0.0-131.0); Potassium 4.6 mmol/L (3.5-5.5); Sodium 143 mmol/L (135-145); Total Bilirubin 0.3 mg/dL (0.3-1.2); Total Protein 6.9 g/dL (6.2-8.2); VLDL Calculation 19.16 mg/dL (5.00-40.00)
[2023-03-18 11:18] LABS: T4, Free (Free Thyroxine) 1.27 ng/dL (0.80-1.80)
[2023-03-18 13:27] LABS: Microalbumin Creatinine Ratio <17 mg/g Cr (0-30); Urine Creatinine 70.5 mg/dL (28.0-217.0)
== END | disposition home or self-care (01) ==
LOC: LABWHC1 06:58
PROVIDERS: ATTEND Family Medicine
DX: I10 Essential (primary) hypertension (principal); E11.65 Type 2 diabetes mellitus with hyperglycemia; E78.2 Mixed hyperlipidemia
CPT/HCPCS: 36415; 80053; 80061; 82043; 82570; 83036; 84439; 84443; 85025

== ENCOUNTER → 2023-07-13 | Outpatient (CLI) | payer MEDICARE ==
[2023-07-13 11:17] LABS: Basophils # (A) 0.04 X 10*3/uL (0.00-0.10); Basophils % (A) 0.6 %; Eosinophils # (A) 0.12 X 10*3/uL (0.04-0.35); Eosinophils % (A) 1.9 %; HCT 41.1 % (37.2-46.3); Lymphocytes # (A) 2.33 X 10*3/uL (0.90-5.00); Lymphocytes % (A) 37.2 %; MCH 26.2 pg (27.0-32.0); MCHC 31.6 g/dL (32.0-37.0); MCV 82.9 FL (80.0-97.0); Mean Platelet Volume 11.4 FL (9.5-12.2); Monocytes # (A) 0.54 X 10*3/uL (0.20-1.00); Monocytes % (A) 8.6 %; NRBC Per 100 WBC 0 X 10*3/uL (0.00-0.01); Neutrophils % (A) 51.2 %; Platelet Count 277 X 10*3/uL (140-440); RBC 4.96 X 10*6/uL (4.10-5.20); RDW 15.2 % (11.5-14.5); WBC 6.26 X 10*3/uL (4.50-10.00)
[2023-07-13 11:38] LABS: ALT 21 U/L (8-44); AST 20 U/L (13-35); Albumin 4.2 g/dL (3.8-4.9); Alkaline Phosphatase 121 U/L (41-126); Blood Urea Nitrogen 17.6 mg/dL (9.0-27.0); Calcium 9.6 mg/dL (8.7-10.3); Chloride 100 mmol/L (96-109); Chol/HDL Ratio 2.08 Ratio; Glucose 134 mg/dL (70-110); LDL Cholesterol,Calculated 35.5 mg/dL (0.0-131.0); Potassium 4.5 mmol/L (3.5-5.5); Sodium 138 mmol/L (135-145); T4, Free (Free Thyroxine) 1.21 ng/dL (0.80-1.80); Total Bilirubin 0.3 mg/dL (0.3-1.2); Total Protein 7.2 g/dL (6.2-8.2)
[2023-07-13 19:45] LABS: Microalbumin Creatinine Ratio <17 mg/g Cr (0-30); Urine Creatinine 70.1 mg/dL (28.0-217.0)
== END | disposition home or self-care (01) ==
LOC: LABWHC1 06:50
PROVIDERS: ATTEND Family Medicine
DX: I10 Essential (primary) hypertension (principal); E11.65 Type 2 diabetes mellitus with hyperglycemia; E78.2 Mixed hyperlipidemia
CPT/HCPCS: 36415; 80053; 80061; 82043; 82570; 83036; 84439; 84443; 85025

== ENCOUNTER → 2023-08-26 | Outpatient (CLI) | payer MEDICARE ==
--- NOTE | 2023-08-27 13:09 | MM ---
Reason for Exam: Screening (asymptomatic). Last mammogram was performed 2 year(s) and 1 month(s) ago. Patient History: Menarche at age 12. First Full-Term at age 18. Postmenopausal. Maternal aunt had breast cancer. Risk Values: Josephine 5 year model risk: 1.4%. NCI Lifetime model risk: 4.3%. Prior Study Comparison: 03/05/2017 Bilateral Screening Mammogram, [facility]. 04/13/2018 Bilateral Screening Mammogram, [facility]. 08/16/2021 Bilateral MG 3D screening mammo w/cad, [facility]. Tissue Density: There are scattered areas of fibroglandular density. Findings: Analyzed By CAD. Right breast: There is no suspicious group of microcalcifications or new suspicious mass. Left breast: There is no suspicious group of microcalcifications or new suspicious mass. Overall Assessment: Negative, BI-RAD 1 Management: Screening Mammogram of both breasts in [address] [facility] will attempt to contact patient to return for supplemental views and ultrasound if indicated. Patient should continue monthly self-breast exams. A clinical breast exam by your physician is recommended on an annual basis. This exam should not preclude additional follow-up of suspicious palpable abnormalities. Note on Josephine scores and lifetime risk: 1. A Josephine score greater than 3% is considered moderate risk. If this is the case, consider specialist referral to assess eligibility for a risk reducing agent. 2. If overall lifetime risk for the development of breast cancer is 20% or higher, the patient may qualify for future screening with alternating mammogram and breast MRI. Electronically signed and approved by: Nakul Forde DO
== END | disposition home or self-care (01) ==
LOC: RADMAMWWP 15:49
PROVIDERS: ATTEND Family Medicine
DX: Z12.31 Encounter for screening mammogram for malignant neoplasm of breast (principal); Z78.0 Asymptomatic menopausal state; Z80.3 Family history of malignant neoplasm of breast
CPT/HCPCS: 77063; 77067

== ENCOUNTER → 2023-10-29 | Outpatient (CLI) | payer MEDICARE | END | disposition home or self-care (01) | LOC: LABPRL 09:00 | PROVIDERS: ATTEND Family Medicine | DX: I10 Essential (primary) hypertension | CPT/HCPCS: 80053; 80061; 82040; 82043; 82570; 83036; 84270; 84403; 84439; 85025 ==

== ENCOUNTER → 2024-03-02 | Outpatient (CLI) | payer MEDICARE ==
[2024-03-02 10:36] LABS: Basophils # (A) 0.04 X 10*3/uL (0.00-0.10); Basophils % (A) 0.7 %; Eosinophils # (A) 0.14 X 10*3/uL (0.04-0.35); Eosinophils % (A) 2.3 %; HCT 41.9 % (37.2-46.3); HGB 13.1 g/dL (12.0-15.0); Lymphocytes # (A) 2.43 X 10*3/uL (0.90-5.00); Lymphocytes % (A) 39.7 %; MCH 26.7 pg (27.0-32.0); MCHC 31.3 g/dL (32.0-37.0); MCV 85.3 FL (80.0-97.0); Mean Platelet Volume 11.4 FL (9.5-12.2); Monocytes # (A) 0.52 X 10*3/uL (0.20-1.00); Monocytes % (A) 8.5 %; NRBC Per 100 WBC 0 X 10*3/uL (0.00-0.01); Neutrophils # (A) 2.98 X 10*3/uL (1.80-7.70); Neutrophils % (A) 48.6 %; Platelet Count 282 X 10*3/uL (140-440); RBC 4.91 X 10*6/uL (4.10-5.20); RDW 14.2 % (11.5-14.5); WBC 6.12 X 10*3/uL (4.50-10.00)
[2024-03-02 11:15] LABS: ALT 16 U/L (8-44); AST 19 U/L (13-35); Albumin 4.2 g/dL (3.8-4.9); Alkaline Phosphatase 124 U/L (41-126); BUN/Creat Ratio 16.22 Ratio (12.00-20.00); Blood Urea Nitrogen 14.6 mg/dL (9.0-27.0); Calcium 9.4 mg/dL (8.7-10.3); Carbon Dioxide 26.6 mmol/L (21.6-31.8); Chloride 103 mmol/L (96-109); Chol/HDL Ratio 2.11 Ratio; Globulin 2.8 g/dL (1.6-3.3); Glucose 122 mg/dL (70-110); LDL Cholesterol,Calculated 46.1 mg/dL (0.0-131.0); Potassium 4.4 mmol/L (3.5-5.5); Sodium 140 mmol/L (135-145); Total Bilirubin 0.3 mg/dL (0.3-1.2)
== END | disposition home or self-care (01) ==
LOC: LABWHC1 07:17
PROVIDERS: ATTEND Family Medicine
DX: Z00.01 Encounter for general adult medical examination with abnormal findings (principal); E11.65 Type 2 diabetes mellitus with hyperglycemia; E78.2 Mixed hyperlipidemia; E55.9 Vitamin D deficiency, unspecified; D51.9 Vitamin B12 deficiency anemia, unspecified
CPT/HCPCS: 36415; 80053; 80061; 82306; 82607; 83036; 84443; 85025